=== PATIENT | female | born 1985 | race African-American/Black ===

== ENCOUNTER 2018-03-23 15:42 | Emergency (ER) | payer BC, MEDICAID ==
[~2018-03-23] VITALS: Ht 177.8 cm; Wt 58.0 kg
[2018-03-23 17:12] LABS: BASOPHILS % 1.3 % (0.0-2.0); EOSINOPHILS % 1.6 % (0.0-5.0); HEMOGLOBIN. 11.9 g/dL (12.0-16.0); LYMPHOCYTES % 18.8 % (20.0-50.0); MEAN CORPUSCULAR HEMOGLOBIN 28.9 pg (28.0-32.0); MEAN CORPUSCULAR VOLUME 87.6 fL (81.0-99.0); MEAN PLATELET VOLUME 8.1 fl (7.4-10.4); MONOCYTES % 12.8 % (2.0-8.0); NEUTROPHILS % 65.5 % (40.0-76.0); PLATELET 160 x1000/uL (130-400); RED CELL DISTRIBUTION WIDTH 15.6 % (11.6-14.6)
[2018-03-23 17:19] LABS: CHLORIDE 99 mEq/L (98-107)
[2018-03-23 17:27] LABS: HCG SCREEN NEGATIVE
[2018-03-23] MEDS: DEXTROSE 50% WATER 50ML SYRINGE IV ONE (18:59)
[2018-03-23] MEDS ORDERED: IOHEXOL-350 100 ML BOTTLE ONE (20:34)
[2018-03-23] MEDS ORDERED: ONDANSETRON 4MG ODT PO STA (22:09)
[2018-03-23 22:25] VITALS: BP 119/77
== END 2018-03-23 22:28 | disposition home or self-care (01) ==
LOC: ER 15:42
DX: R07.9 Chest pain, unspecified (principal); F17.200 Nicotine dependence, unspecified, uncomplicated
CPT/HCPCS: 36415; 71045; 71275; 80053; 81025; 82962; 83880; 84484; 84703; 85025; 85379; 93005; 96374; 99284; Q0162; Q9967